=== PATIENT | female | born 1970 | race Caucasian/White ===

== ENCOUNTER 2019-07-15 07:57 | Emergency (ER) | payer OTHER ==
[~2019-07-15] VITALS: Ht 170.2 cm; Wt 106.6 kg
[2019-07-15 08:15] VITALS: BP 150/96
--- NOTE | 2019-07-15 08:15 | PHYS DOC ---
Adult General Chief Complaint Chief Complaint: ANKLE PROBLEM HPI HPI Patient is a 48 year old female who presents with complaining of injury to right ankle. Patient states she had an accidental fall last night had garage at 2300 without loss of consciousness or hitting her head. Patient states she twist ed her right ankle and since the pain and had 1 episode of vomiting patient states she took meloxicam and wrap her ankle with [place] wrap but was not able to bearing weight and rated her pain 5 at rest and 10 with standing up. Patient denies focal neuro deficit and other injuries and states her nausea resolved today. Review of Systems Review of Systems Constitutional: Denies fever or chills [] Eyes: Denies change in visual acuity, redness, or eye pain [] HENT: Denies nasal congestion or sore throat [] Respiratory: Denies cough or shortness of breath [] Cardiovascular: No additional information not addressed in HPI [] GI: Denies abdominal pain, nausea, vomiting, bloody stools or diarrhea [] : Denies dysuria or hematuria [] Musculoskeletal: Denies back pain, reports joint pain [] Integument: Denies rash or skin lesions [] Neurologic: Denies headache, focal weakness or sensory changes [] Endocrine: Denies polyuria or polydipsia [] All other systems were reviewed and found to be within normal limits, except as documented in this note. Allergies Allergies Allergies Coded Allergies Type Severity Reaction Last Updated Verified Sulfa (Sulfonamide Antibiotics) Allergy Intermediate rash 07/15/19 Yes Physical Exam Physical Exam Constitutional: Well developed, well nourished, mild distress, non-toxic appearance. [] HENT: Normocephalic, atraumatic. Eyes: PERRLA, EOMI, conjunctiva normal, no discharge. [] Neck: Normal range of motion, no tenderness, supple, no stridor. [] Cardiovascular:Heart rate regular rhythm, no murmur [] Lungs & Thorax: Bilateral breath sounds clear to auscultation [] Skin: Warm, dry, no erythema, no rash. [] Back: No tenderness, no CVA tenderness. [] Extremities: Right ankle with moderate edema and tenderness in lateral malleolus, painful range of motion, normal neurovascular deficit. Neurologic: Alert and oriented X 3, no focal deficits noted. [] Psychologic: Affect normal, judgement normal, mood normal. [] Current Patient Data Vital Signs Vital Signs Date Time Temp Pulse Resp B/P (MAP) Pulse Ox O2 Delivery O2 Flow Rate FiO2 07/15/19 08:15 98.8 95 16 150/96 (114) 98 Room Air 98.8 EKG EKG [] Radiology/Procedures Radiology/Procedures [address] [place] [address] IMAGING REPORT Signed PATIENT: LEILA MADDENACCOUNT: [id number] : 1970 LOCATION: ER AGE: 48 SEX: F EXAM STATUS: REG ER ORD. PHYSICIAN: NISREEN RAO MD REASON: injury PROCEDURE: ANKLE RIGHT 3V Indication:Injury. TECHNIQUE: 3 views of the right ankle COMPARISON:None FINDINGS/ impression: Nondisplaced oblique fracture is seen through the lateral aspect of the lateral malleolus. Ankle mortise is intact. Moderate lateral ankle soft tissue swelling noted. Electronically signed by: Nico Donahue DO (07/15/2019 8:52 AM) [facility] DICTATED and SIGNED BY: NICO DONAHUE DO DATE: 07/15/19 0852 Course & Med Decision Making Course & Med Decision Making Pertinent Imaging studies reviewed. (See chart for details) Evaluation of patient in ER showed 48-year-old female patient with accidental fall last night and injury to right lateral malleolus. Patient had nondisplaced fracture of distal fibula. Plan to apply strap splint and provided and crutches. Patient was advised to follow-up with [facility] physician. Dragon Disclaimer Dragon Disclaimer This electronic medical record was generated, in whole or in part, using a voice recognition dictation system. Departure Departure Impression: Primary Impression: Closed fracture of lateral malleolus of right fibula Additional Impression: Fall at home Disposition: 01 HOME, SELF-CARE (at 0 910) Condition: IMPROVED Referrals: LATOSHA العراقي MD Patient Instructions: Ankle Fracture, Fibular Fracture, Ankle, Adult, Undisplaced, Treated with Immobilization Additional Instructions: Apply ice on the affected area Follow-up with [facility] professional orthopedic physician in 1-2 days Return to ER if not getting better Scripts Hydrocodone/Apap 5-325 (NORCO 5-325 TABLET) 1 Each Tablet 1 TAB PO PRN Q6HRS PRN for PAIN, #14 TAB 0 Refills Prov: NISREEN RAO MD 07/15/19 Ibuprofen (IBUPROFEN) 800 Mg Tablet 800 MG PO PRN Q8HRS PRN for INFLAMMATION, #30 TAB Prov: NISREEN RAO MD 07/15/19 Problem Qualifiers Primary Impression: Closed fracture of lateral malleolus of right fibula Encounter type: initial encounter Fracture alignment: nondisplaced Qualified Codes: S82.64XA - Nondisplaced fracture of lateral malleolus of right fibula, initial encounter for closed fracture Additional Impression: Fall at home Encounter type: subsequent encounter Qualified Codes: W19.XXXD - Unspecified fall, subsequent encounter; Y92.009 - Unspecified place in unspecified non-institutional (private) residence as the place of occurrence of the external cause NISREEN RAO MD Jul 15, 2019 08:15
--- NOTE | 2019-07-15 08:55 | RAD ---
Indication:Injury. TECHNIQUE: 3 views of the right ankle COMPARISON:None FINDINGS/ impression: Nondisplaced oblique fracture is seen through the lateral aspect of the lateral malleolus. Ankle mortise is intact. Moderate lateral ankle soft tissue swelling noted. Electronically signed by: Nico Donahue DO (07/15/2019 8:52 AM) [facility]
[2019-07-15] MEDS ORDERED: HYDR-3164 PO (09:12)
[2019-07-15] MEDS ORDERED: IBUP-1060 PO (09:12)
[2019-07-15] MEDS ORDERED: HYDROcodone/APAP 5/325MG 1 TAB TABLET PO ONE (09:30)
== END 2019-07-15 10:01 | disposition home or self-care (01) ==
LOC: ER 07:57
DX: S82.64XA Nondisplaced fracture of lateral malleolus of right fibula, initial encounter for closed fracture (principal); Z88.2 Allergy status to sulfonamides; W18.39XA Other fall on same level, initial encounter; Y93.89 Activity, other specified; Y92.89 Other specified places as the place of occurrence of the external cause; Y99.8 Other external cause status
CPT/HCPCS: 29515; 73610; 99284